=== PATIENT | female | born 1925 | race Caucasian/White ===

== ENCOUNTER 2016-05-31 13:25 | Inpatient (IN) ==
[2016-05-31] MEDS ORDERED: MAGNESIUM HYDROXIDE SUSP 30 ML UDCUP PO PRN (13:42)
[2016-05-31] MEDS ORDERED: ZALEPLON 5 MG CAPSULE PO PRN (13:42)
[2016-05-31] MEDS ORDERED: ONDANSETRON 4 MG/2 ML VIAL IV PRN (13:42)
[2016-05-31] MEDS ORDERED: ACETAMINOPHEN 325 MG TABLET PO PRN (13:42)
[2016-05-31 15:21] LABS: Basophils % 0.6 % (0.0-0.8); Eosinophils # 0.1 10*3/uL (0.0-0.87); Eosinophils % 1.5 % (0.00-10.9); Hematocrit 33.7 VOL% (35.7-47.0); Immature Granulocytes % 0.3 %; Immature Granulocytes Absolute 0.02 #; Lymphocytes % 14.5 % (21.3-54.2); Mean Corpuscular HGB Conc 32.6 GM/DL (32-36); Mean Corpuscular Hemoglobin 31 PG (27-34); Mean Corpuscular Volume 95.2 FL (87-102); Mean Platelet Volume 11.5 FL (9.6-12.0); Monocytes # 0.6 10*3/uL (0.11-0.8); Monocytes % 9.5 % (1.7-12.7); Neutrophils % 73.6 % (38.7-73.9); Platelet Count 205 T/CUMM (130-400); Red Blood Count 3.54 MC/CUMM (3.8-5.5); White Blood Count 6.8 T/CUMM (4-12)
[2016-05-31 15:31] LABS: INR 1.1; PT Patient Result 11.6 SECS; Partial Thromboplastin Time 24.6 SECS (0-40)
--- NOTE | 2016-05-31 15:53 | XRay Report ---
XR chest 1V portable Indication: Preop respiratory evaluation. Chest one view: Comparison 05/21/14. Normal heart size and mediastinal contour, and mildly tortuous thoracic aorta, scattered calcified granulomata, healed posterior right rib fractures, and generally clear lungs are stable. Pleural spaces remain clear. Impression: No acute cardio pulmonary disease. PROCEDURE INTERPRETED AT [facility] [place] DEPARTMENT OF RADIOLOGY Final Report Signed by: William Lyons M.D.
--- NOTE | 2016-05-31 15:56 | XRay Report ---
XR hip 2v w pelvis RT Indication: Recent fall. Occult right hip fracture on MRI. Pelvis one view, right hip 2 views: Dymu-ep-zcoz articulation of the right hip is present with reactive sclerosis, osteophyte development and remodeling of the articular surfaces. No hip fracture is identified in any of these obtained. The left hip joint space is maintained and no fracture or dislocation is seen on that side. Pelvic ring is intact without fracture or diastases. Sacral elements are maintained as well. Impression: Severe right hip osteoarthritis. No discrete fracture identified. PROCEDURE INTERPRETED AT [facility] DEPARTMENT OF RADIOLOGY Final Report Signed by: William Lyons M.D.
[2016-05-31 15:58] LABS: Albumin 3.7 G/DL (3.4-5.0); Bilirubin,Total 0.5 MG/DL (0.2-1.0); Osmolality,Calculated 298.6 MOS/KG (273-304); Potassium 4.4 MMOL/L (3.5-5.1); Total Protein 6.9 G/DL (6.4-8.3)
--- NOTE | 2016-05-31 18:01 | Event Note ---
Ms Kate has been admitted from clinic for a MRI positive intertrochanteric hip fracture after fall. She also has severe underlying hip osteoarthritis. She currently has no new complaints. Plan: I've advised a total hip arthroplasty given the combination of severe hip osteoarthritis and the fracture. All questions were answered.
[2016-05-31 18:09] LABS: Apearance,Urine CLOUDY (Clear); Bacteria,Urine Occasional /HPF (Few); Bilirubin,Urine Negative (Negative); Blood, Urine Small mg/dL (Negative); Glucose,Urine (UA) Negative (Negative); Hyaline Casts,Urine 1 /LPF (0-3); Ketones,Urine Negative (Negative); Mucus,Urine Occasional /LPF (Occasional); Nitrite,Urine Negative (Negative); Protein,Urine Negative; RBC,Urine 10 /HPF (0-4); Squamous Epithelial Cell,Urine Occasional /HPF (0-10); Urine Color Yellow (Yellow); Urine Urobilinogen < 2.0 EU/DL (0.2-1.0); WBC,Urine 3 /HPF (0-6)
[2016-06-01] MEDS ORDERED: VANCOMYCIN INJ 1,000 MG in SODIUM CHLORIDE 0.9% 250 ML IV ONE (06:00)
--- NOTE | 2016-06-01 07:55 | EKG Report ---
Stationary ECG Study [facility] Test Date: 06/01/2016 7:49:32 AM Pat Name: JOHNSON CASTRO Department: Room: 319 Gender: F Nursing Home Admissions Director: FACUNDO : 1925 Requested by: Randy Chandler Order Number: [id number] Reading MD: JOSH GRIMM Intervals [place] Rate: 69 P: 88 [place]: 144 QRS: 84 QRSD: 79 T: 80 QT: 414 QTc: 433 Interpretive Statements SINUS RHYTHM WITH PREMATURE VENTRICULAR COMPLEX Electronically Signed On 06-01-16 12:37:59 AQUARIUM SPECIALIST by JOSH GRIMM [email or web address]
--- NOTE | 2016-06-01 08:00 | Orthopedic Progress Note ---
Orthopedics - Subjective Interval history: Mrs Kate was seen this am. No new complaints. She has been up walking several times. Exam unchanged. Plan: Proceed with FLORIN today. I've discussed indications and rationale for the procedure. Also, discussed the importance of not ambulating on rle until after surgery. Exam - Constitutional Vitals: Period Temp Pulse Resp BP Sys/Chandler Pulse Ox Last 24 Hr 97.3 F-98.1 F 75-81 16-18 138-151/67-77 98-99 Results - Labs CBC & BMP: 05/31/16 15:02 05/31/16 15:02
[2016-06-01] MEDS: SULFAMETHOX/TRIMETHOPRIM 800-160 MG TABLET PO SCH ×2 (09:12→21:38)
[2016-06-01] MEDS: LACTATED RINGERS 1,000 ML IV SCH ×2 (10:00→16:02)
--- NOTE | 2016-06-01 11:48 | Pulmonology Consult Note ---
History of Present Illness Chief complaint: Surgical clearance, Medical management History of present illness: Josh Basilio, ANP-BC, GNP-BC, acting as scribe for Dr. Kevin Degroot Mrs. Kate is an 89 year old white female from [place], [place], who we've been asked to see for surgical clearance for a right total hip arthroplasty. We will also medically manage her while inpatient. The request for consultation was made by Dr. Elizabeth. Mrs. Kate has had multiple falls recently. She was seen at [facility] [place] on [place]/16 by Suzy Guevara NP, with complaints of right leg pain after a fall. Xrays showed no acute fracture. An MRI was scheduled and this showed an intertrochanteric fracture of the right hip. She was seen today along with her kotktdns-fr-gbv, Alecia Cardoza. Mrs. Cardoaz provides much of the ROS and history. She states the patient's breathing has been doing fine. She denies any cardiac angina or palpitations. There is no reported dysphagia or reflux. No change in bowel or bladder habits. No TIA symptoms or syncope. She state that her "leg gives way" and she falls. This has been ongoing by report. No bleeding from any site. All other systems were reviewed and were negative. Allergies: Codeine Home medications: See list Past medical history: Proximal spastic disease. High blood pressure. Mild degenerative joint disease. She was told in [place] years ago that she might have had a small heart attack. She says she never had any symptoms but the doctor saw it on the EKG. She's had a hysterectomy, and she had a fractured arm in about 1979 that as she was going through rehabilitation deteriorated and she required surgery on it. She had a basal cell carcinoma removed from the right elbow and upper eyelid by Dr. Wetzel in January 2014. March [address] Cehry with colonic perforation. Had abdominal surgery at [facility] by Dr. Ricks. History of rheumatoid arthritis which was previously followed by Dr. Berhane Maloney. Social history: The patient does not smoke or drink. She has a 12th grade education. She mainly worked as a housewife. She is a member of the "[employer] On 12/03/2014 she said she is no longer singing. She is . Her had cirrhosis of the liver. He was not a drinker. He was a retired marine. He was 17 years younger than the patient. She says she grew up in [place] then moved to [place], [place], [place]. She later lived in [place], [place]. She moved back to the [place] area several years ago. She says she has been followed by Dr. Gilson Valle and before that she was followed by Dr. Arreaga who took care of her until he . Family history: Patient's father at the age of 28 of an unknown cause. Chest x-ray. Done 05/31/2016. No acute cardio pulmonary process. X-ray of the right hip done 05/31/2016. Severe right hip osteoarthritis. No discrete fracture identified. Laboratory: White count is 6800 with 73.6% segs, 14.5% lymphs, and 9.5% monos; H &H 11.0/33.7 with normal indices and normal red blood cell distribution width; platelet count 205,000; INR 1.1; creatinine 1.40, BUN 39, sodium 146, potassium 4.4, liver function tests within normal limits, calcium 9.0, albumin 3.7, total protein 6.9; urinalysis showed small leukocytes with 3 WBCs per high-power field. Urine cultures pending. Home Medications Medication Instructions Recorded Confirmed Type Albuterol Sulfate [Ventolin HFA] 2 puff INH BID PRN 01/09/15 05/31/16 History Calcium Carbonate/Vitamin D3 1 each PO DAILY 01/09/15 05/31/16 History [Calcium 500 + Vit D 200 Tablet] Losartan/Hctz 50-12.5 [Hyzaar 1 tablet PO DAILY 01/09/15 05/31/16 History 50-12.5] Solifenacin [Vesicare] 5 mg PO DAILY 01/09/15 05/31/16 History Mirtazapine 15 mg PO BEDTIME 06/01/16 06/01/16 History Allergies Allergy/AdvReac Type Severity Reaction Status Date / Time codeine Allergy Verified 01/09/15 08:08 Exam (Pulmonay) H&P - Constitutional Vitals: Period Temp Pulse Resp BP Sys/Chandler Pulse Ox Last 24 Hr 97.3 F-98.1 F 74-81 16-18 131-151/67-77 98-99 Exam: Psych: Presently oriented x 3; a pleasant and cooperative patient HEENT: Pupils, irises, sclera, conjunctiva, and eyelids are normal. The face is symmetrical without rash or masses. Lips, tongue, buccal mucosa, soft and hard palates, and pharynx are WNL . Neck: Symmetrical. Thyroid was not palpated. Lymphatics: No submandibular, cervical, or supraclavicular adenopathy Chest: Symmetrical without wheeze, rhonchi or rales; no chest wall tenderness Breasts: Deferred CV: Regular with a lateral PMI; no murmur, rub, or dwyer was heard Arterial: Carotids with a fairly good upstroke, partially hidden behind the sternocleidomastoid muscles. There is no bruit. Upper extremity pulses are palpable. Lower extremity pulses are palpable. Venous: Exam of the neck, upper, and lower extremities is normal Abd: No appreciable organomegaly, masses, tenderness, or bruit; Bowel sounds are positive x 4; The aorta was not palpated /Rectal: Deferred Extremities: No clubbing, cyanosis, significant edema, or obvious DVT; as per Dr. Elizabeth Skin: No cancerous or infectious lesions of the exposed, examined skin; the perineal area was not examined M/S: Age appropriate loss of the normal curvature of the cervical, thoracic, and lumbar spine Neurological: Cranial nerves are intact with some mild decreased hearing acuity bilaterally, Long tract motor function is intact; Sensory exam was not done; gait was not tested. The remainder of the exam was noncontributory. Impression: #1: Acute right intertrochanteric hip fracture s/p fall #2: Severe underlying osteoarthritis of the right hip #3: Rheumatoid arthritis; previously followed by Dr. Berhane Maloney #4: Asthma; good control #5: Hypertension; good control #6: History of hysterectomy #7: Previous surgery for fractured arm in 1979 #8: See past history Plan: #1: Cleared for anesthesia and surgery #2: Continue her medications #3: We discussed the patient's multiple falls and gait abnormalities with her jslsqfxc-lu-wfr. We recommended [facility] on discharge. The family is agreeable. We put in a consult social studies department chair so they can begin working with [facility]. #4: See orders We appreciate this consult and will follow along with you. Medical,Surgical,& Family Hx - Medical History Cardio: History of: Hypertension, SC (2 small ones 10-12 years ago) Psychological: History of: Depression Neurology: No history of: Seizures Rheumatology: History of;: Rheumatoid Arthritis Respiratory: History of: Asthma Gastrointestinal: History of: GERD, GI Problems (constipation) Musculoskeletal: History of: Osteoporosis Comment Only: Musculoskeletal Problems (broken ribs-rt. side..2 weeks ago from a fall) - Surgical History Neurologic Surgeries: Patient denies: Neurologic Surgery HEENT Surgeries: Surgical HX of: Tonsilectomy & Adenoidectomy Abdominal Surgeries: Surgical HX of: Appendectomy (?), Colonoscopy, EGD Reproductive Surgeries: Surgical HX of;: Hysterectomy - Social History Smoking Status: Never smoker Frequency of Alcohol Use: None Type of Drug Use: None Results - Labs CBC & BMP: 05/31/16 15:02 05/31/16 15:02
[2016-06-01] MEDS ORDERED: ONDANSETRON 4 MG/2 ML VIAL ONE (12:12)
[2016-06-01] MEDS ORDERED: LIDOCAINE 2% 5 ML VIAL ONE (12:12)
[2016-06-01] MEDS ORDERED: PROPOFOL 200 MG/20 ML VIAL IV ONE (12:12)
[2016-06-01] MEDS ORDERED: TRANEXAMIC ACID 1,000 MG/10 ML VIAL IV ONE (12:50)
[2016-06-01] MEDS ORDERED: BACITRACIN OINT 0.9 GM PACK TOP ONE (13:22)
--- NOTE | 2016-06-01 14:17 | Anesthesia ---
Anesthesia Post OP - Post Ansesthetic Evaluation Patient seen in post op: Yes Resp: within normal limits CV: within normal limits Mental: within normal limits Temp: within normal limits Vuyh-Vb-Jkxpjcwrb: within normal limits Nausea and Vomiting: within normal limits Pain: within normal limits
[2016-06-01] MEDS ORDERED: MIDAZOLAM 2 MG/2 ML VIAL ONE (14:21)
[2016-06-01] MEDS ORDERED: fentaNYL 100 MCG/2 ML VIAL ONE (14:21)
[2016-06-01 14:23] LABS: Apearance,Urine CLEAR (Clear); Bilirubin,Urine Negative (Negative); Blood, Urine Negative (Negative); Glucose,Urine (UA) Negative (Negative); Ketones,Urine Negative (Negative); Mucus,Urine Occasional /LPF (Occasional); Nitrite,Urine Negative (Negative); Protein,Urine Negative; RBC,Urine 1 /HPF (0-4); Urine Color Yellow (Yellow); Urine Specific Gravity 1.018 (1.001-1.035); Urine Urobilinogen < 2.0 EU/DL (0.2-1.0); WBC,Urine <1 /HPF (0-6)
[2016-06-01] MEDS ORDERED: HYDROmorphone 2 MG/1 ML VIAL IV PRN (14:30)
[2016-06-01] MEDS ORDERED: ONDANSETRON 4 MG/2 ML VIAL IV PRN (14:30)
[2016-06-01] MEDS ORDERED: LACTATED RINGERS 1,000 ML IV SCH (14:30)
[2016-06-01] MEDS ORDERED: oxyCODONE IR 5 MG TABLET PO PRN ×2 (14:35)
[2016-06-01] MEDS ORDERED: MORPHINE 2 MG/1 ML SYRINGE IV PRN ×2 (14:35)
--- NOTE | 2016-06-01 14:49 | Operative Note ---
Date of procedure: 06/01/16 Procedure: DIAGNOSIS: Right intertrochanteric hip fracture. Right hip primary osteoarthrosis PROCEDURE: Right total hip arthroplasty (cpt #33885) SURGEON: Glenn COOK CHILL TECHNICIAN: [] ANESTHESIA: Spinal PROCEDURE and FINDINGS: After adequate anesthesia was induced, her operative hip was prepped and draped in usual sterile sterile fashion in the lateral decubitus position. Posterior lateral approach was made. Skin and subcutaneous tissue and deep fascia was incised. The gluteus maite muscle belly was split in line with its fibers. Piriformis, capsule and external rotators were taken down in a single layer for future repair. Templated femoral neck cut was made. The acetabulum was prepared by excising labrum and foveal contents and by sequentially reaming to 49 mm. A 50 mm Continuum shell was pressfit. 1 6.5mm screws and a dome hole plug was used. 32 mm elevated Longevity liner was placed. Femur was prepared with the box osteotome , canal finder and sequential broaches to size 13. Components were trialed. A size 13 VerSys Advocate stem was implanted with modern cementing techniques with Palacos cement. A distal centralizer and cement plug.were utilized. The femoral head was re-trialed and a 32+0 mm head was selected. Capsule and external rotators were repaired to themselves with #5 Tycron. To support the residual fracture involving the greater trochanter, a dzhnaq-th-ksiiq #5 Tycron suture was passed through the gluteus medius tendon and the vastus lateralis origin. Fascia was repaired with 0 Vicryl rwaxyv-qo-xjvdt sutures. Deep subcutaneous tissues were closed with 0 Vcryl. Deep subcutaneous tissue was closed with a running 2-0 Vicryl suture. Superficial subcutaneous tissue was approximated with interrupted, buried 3-0 Vicryl sutures. [place] were used to approximate skin. Bacitracin and a sterile dressing were applied. Surgeon / Physician: Randy Elizabeth Jr. Results - Labs CBC & BMP: 05/31/16 15:02 05/31/16 15:02 Discharge Plan - Discharge Medications No Action Solifenacin [Vesicare] 5 mg PO DAILY Albuterol Sulfate [Ventolin HFA] 2 puff INH BID PRN PRN Reason: ASTHMA Losartan/Hctz 50-12.5 [Hyzaar 50-12.5] 1 tablet PO DAILY Calcium Carbonate/Vitamin D3 [Calcium 500 + Vit D 200 Tablet] 1 each PO DAILY Mirtazapine 15 mg PO BEDTIME - Follow Up or Referral - Forms/Instructions
--- NOTE | 2016-06-01 15:05 | XRay Report ---
XR hip 1V RT Indication: Hip arthroplasty Comparison: 31 May 2016 Findings: Interval right hip arthroplasty has been performed. Arthroplasty alignment and positioning appear within normal limits for single AP image. No periprosthetic fracture is identified. Impression: Hip arthroplasty within normal limits postoperatively. PROCEDURE INTERPRETED AT [facility] DEPARTMENT OF RADIOLOGY Final Report Signed by: Dr. Jose Williamson
[2016-06-01] MEDS: KETOROLAC 15 MG/1 ML VIAL IV SCH ×2 (16:02→21:38)
[2016-06-01] MEDS: ACETAMINOPHEN 500 MG TABLET PO SCH (18:25)
[2016-06-01] MEDS: DOCUSATE SODIUM 100 MG CAPSULE PO SCH (21:38)
[2016-06-02] MEDS: ACETAMINOPHEN 500 MG TABLET PO SCH ×3 (01:48→12:48)
[2016-06-02] MEDS: LACTATED RINGERS 1,000 ML IV SCH (02:59)
[2016-06-02] MEDS: KETOROLAC 15 MG/1 ML VIAL IV SCH ×2 (03:00→10:27)
[2016-06-02 05:20] LABS: Basophils % 0.5 % (0.0-0.8); Eosinophils # 0.3 10*3/uL (0.0-0.87); Eosinophils % 4.3 % (0.00-10.9); Hematocrit 26.2 VOL% (35.7-47.0); Hemoglobin 8.9 GM/DL (12.0-16.0); Immature Granulocytes % 0.2 %; Immature Granulocytes Absolute 0.01 #; Lymphocytes # 0.7 10*3/uL (1.4-4.0); Lymphocytes % 12.6 % (21.3-54.2); Mean Corpuscular Hemoglobin 31 PG (27-34); Mean Corpuscular Volume 92.6 FL (87-102); Mean Platelet Volume 11.1 FL (9.6-12.0); Monocytes # 0.7 10*3/uL (0.11-0.8); Monocytes % 11.4 % (1.7-12.7); Neutrophils # 4.1 10*3/uL (1.4-7.4); Platelet Count 154 T/CUMM (130-400); Red Blood Count 2.83 MC/CUMM (3.8-5.5); White Blood Count 5.8 T/CUMM (4-12)
[2016-06-02 06:00] LABS: Calcium 7.9 MG/DL (8.5-10.1); Osmolality,Calculated 294.6 MOS/KG (273-304); Potassium 4.3 MMOL/L (3.5-5.1)
[2016-06-02] MEDS ORDERED: ALBUTEROL 2.5 MG/3 ML NEB RESP TX PRN (07:33)
--- NOTE | 2016-06-02 07:37 | Orthopedic Progress Note ---
Orthopedics - Subjective Interval history: Comfortable this morning. Pillow not between legs. Dressing dry. NV ok. Discussed the importance of pillow between legs while in bed. Mobilize with therapy. Exam - Constitutional Vitals: Period Temp Pulse Resp BP Sys/Chandler Pulse Ox Last 24 Hr 97.7 F-98.9 F 53-81 14-25 93-143/46-81 97-100 Results - Labs CBC & BMP: 06/02/16 05:09 06/02/16 05:09
[2016-06-02] MEDS: CALCIUM (CARBONATE)/VITAMIN D 500 MG-200 UNIT TABLET PO SCH (10:16)
[2016-06-02] MEDS: DOCUSATE SODIUM 100 MG CAPSULE PO SCH ×2 (10:16→20:32)
[2016-06-02] MEDS: SULFAMETHOX/TRIMETHOPRIM 800-160 MG TABLET PO SCH (10:16)
[2016-06-02] MEDS: FONDAPARINUX 2.5 MG/0.5 ML SYRINGE SUBCUT SCH (10:17)
[2016-06-02] MEDS: LOSARTAN/HCTZ 50-12.5 MG TABLET PO SCH (10:17)
[2016-06-02] MEDS: SOLIFENACIN 5 MG TABLET PO SCH (10:17)
[2016-06-02] MEDS ORDERED: KETOROLAC 30 MG/1 ML VIAL ONE (10:25)
--- NOTE | 2016-06-02 11:50 | Pathology Report from [facility] ---
ACCESSION # : [id number] PATIENT NAME : Johnson Castro ORDERING DR : GABINO YA MD CLINICAL HX: RT FX hip POST-OP DX: Same SPECIMEN INFO: RT femoral head & tissue GROSS DESCRIPTION: The specimen is received in formalin labeled with the patient 's name Johnson Castro consists of a femoral head that is 3.7 x 3.9 x up to 2.2 cm. The articular surfaces are degenerative with bony eburnation measuring up to 4 cm. The cut surfaces are hemorrhagic and smooth with mild softening appreciated. Land Appraiser tissue is submitted in one casssette following decalcification. DIAGNOSIS FOR JOHNSON CASTRO: Right femoral head with fracture and changes of degenerative joint disease/ osteoarthritis.Unremarkable hematopoietic marrow with no abnormal collections of blasts, plasma cells, tumor cells or lymphocytes. SERVICE DATE: 06/02/2016 REPORT DATE: 06/02/2016 PATHOLOGIST: Deng Minor M.D. [facility]
--- NOTE | 2016-06-02 11:56 | Pulmonology Progress Note ---
Pulmonary - PN: Subj Interval history: Josh Basilio, ANP-BC, GNP-BC, acting as scribe for Dr. Kevin Degroot Mrs. Kate was seen today along with Suzy Valentine, PT. Mrs. Kate was admitted by Dr. Elizabeth on 05/31/16 after a positive MRI for an acute intertrochanteric fracture of the right hip. She underwent a right total hip arthroplasty 06/01/[address] Elizabeth. She has done well post-op. She is working with physical therapy. Yesterday we consulted marriage and family social worker for placement at [facility] on discharge. The patient has had multiple falls at home recently ("every day" per her qjjiedsl-dy-ivd), so she definitely needs more therapy and gait training. Urine culture has grown E. coli. She has chronic azotemia. For these reasons, on review of the sensitivities provided we will change the Bactrim DS to Cipro which has an GABRIELA of <1. Medications have been reviewed. Labs have been reviewed. White count is 5,800 with 71.0% segs; H&H 8.9/26.2 with normal indices and normal RDW; PLT count 154,000; creatinine 1.30, BUN 27, NA+ 146, K+ 4.3; Ca+ 7.9 Exam (Progress Note) - Constitutional Vitals: Period Temp Pulse Resp BP Sys/Chandler Pulse Ox Last 24 Hr 97.5 F-98.9 F 53-81 14-25 93-147/46-81 94-100 Exam: Chest is wheeze free Herat no gallop Abd is nontender and nondistended; BS positive x [address] Elizabeth; nothing to suggest acute DVT Psych presently oriented x 3 Neuro long tract motor function is intact Plan: Cipro as above. Repeat CBC in the morning. See orders. Results - Labs CBC & BMP: 06/02/16 05:09 06/02/16 05:09
[2016-06-02] MEDS: CIPROFLOXACIN 250 MG TABLET PO SCH ×2 (12:48→20:32)
[2016-06-02] MEDS ORDERED: MIRTAZAPINE 15 MG TABLET PO SCH (21:00)
[2016-06-03 06:16] LABS: Basophils % 0.3 % (0.0-0.8); Eosinophils # 0.3 10*3/uL (0.0-0.87); Eosinophils % 4.3 % (0.00-10.9); Hematocrit 26.7 VOL% (35.7-47.0); Hemoglobin 8.8 GM/DL (12.0-16.0); Immature Granulocytes % 0.4 %; Immature Granulocytes Absolute 0.03 #; Lymphocytes # 0.6 10*3/uL (1.4-4.0); Lymphocytes % 8.3 % (21.3-54.2); Mean Corpuscular Hemoglobin 31 PG (27-34); Mean Platelet Volume 12.3 FL (9.6-12.0); Monocytes # 0.9 10*3/uL (0.11-0.8); Neutrophils # 5.4 10*3/uL (1.4-7.4); Neutrophils % 74.7 % (38.7-73.9); Platelet Count 157 T/CUMM (130-400); Red Blood Count 2.84 MC/CUMM (3.8-5.5); Red Cell Distribution Width 11.9 % (9.3-17.3); White Blood Count 7.2 T/CUMM (4-12)
--- NOTE | 2016-06-03 07:45 | Orthopedic Progress Note ---
Orthopedics - Subjective Interval history: Ms Kate is comfortable this morning. Slight serosanguineous drainage from the proximal aspect of her wound. Right lower extremity is neurovascularly unchanged. Plan: Continue with physical therapy. Discharge planning. Plan discharge to [facility] when bed available. Exam - Constitutional Vitals: Period Temp Pulse Resp BP Sys/Chandler Pulse Ox Last 24 Hr 97.5 F-98.6 F 70-86 14-18 106-147/59-74 94-98 Results - Labs CBC & BMP: 06/03/16 04:43 06/02/16 05:09 Specialty Discharge - Follow Up or Referrals Follow up with: Randy Elizabeth Jr., MD [Physician] -
--- NOTE | 2016-06-03 07:48 | Discharge Summary ---
Hospital Course - Hospital Course Hospital Course: Ms Kate was admitted with a MRI-positive right intertrochanteric hip fracture with severe underlying hip osteoarthritis. She was admitted for pain control and workup. She underwent a uncomplicated right total hip arthroplasty. She received perioperative DVT and antimicrobial prophylaxis. Dr. Degroot was consulted to manage her medical problems perioperatively. Ms Kate had a preoperative Escherichia coli UTI. She was initially started on Bactrim. She was then switched to Cipro. Specialty Discharge - Follow Up or Referrals Follow up with: Randy Elizabeth Jr., MD [Physician] - Discharge Plan - Discharge Data Disposition: Disch/Xfer to Snf Condition at Discharge: Stable Discharge Diet: advance to your usual diet Activity: ambulate only with your walker Hygiene: may shower Weight Bearing at Discharge: weight bear as tolerated Driving: not until seen by doctor - Discharge Medications New Docusate Sodium Cap [Colace Cap] 100 mg PO BID capsule Ciprofloxacin Tab [Cipro Tab] 250 mg PO Q12HR 4 Days Fondaparinux [Arixtra] 2.5 mg SUBCUT Q24H syringe oxyCODONE IR [Roxicodone] 10 mg PO Q4H PRN #0 tablet PRN Reason: Pain Moderate (4-7) oxyCODONE IR [Roxicodone] 5 mg PO Q4H PRN #0 tablet PRN Reason: Pain Mild (1-3) Continue Solifenacin [Vesicare] 5 mg PO DAILY Albuterol Sulfate [Ventolin HFA] 2 puff INH BID PRN PRN Reason: ASTHMA Losartan/Hctz 50-12.5 [Hyzaar 50-12.5] 1 tablet PO DAILY Calcium Carbonate/Vitamin D3 [Calcium 500-Vit D3 200 Tablet] 1 each PO DAILY Mirtazapine 15 mg PO BEDTIME - Follow Up or Referral Follow Up: Randy Elizabeth Jr., MD [Physician] - - Forms/Instructions Additional Discharge Instructions: Posterior hip precautions for 3 months. Daily dry dressing changes. Arrange for walker and bedside commode for home use. Wear BETHANY hose for 1 month. Follow-up appointment in 4 weeks. Discontinue zeyad and Steri-Strip wound on 06/13/2016. Prescription for oxycodone IR 5 mg with 20 tablets was written. Stop Arixtra when discharged from [facility]. Exam - Constitutional Vitals: Period Temp Pulse Resp BP Sys/Chandler Pulse Ox Last 24 Hr 97.9 F-98.6 F 70-86 15-18 106-126/59-74 96-98 Discharge Results Procedures and tests throughout hospitalization: Pending Orders 06/04/16 04:00 Comp Blood Count Auto Diff IN AM Labs on day of discharge: Labs from last 24 hours 06/03/16 04:43 WBC 7.2 RBC 2.84 L Hgb 8.8 L Hct 26.7 L MCV 94.0 MCH 31 MCHC 33.0 RDW 11.9 Plt Count 157 MPV 12.3 H Neut % (Auto) 74.7 H Lymph % (Auto) 8.3 L [place] % (Auto) 12.0 Eos % (Auto) 4.3 Baso % (Auto) 0.3 Neut # (Auto) 5.4 Lymph # (Auto) 0.6 L [place] # (Auto) 0.9 H Eos # (Auto) 0.3 Baso # (Auto) 0.0 Immature Gran % 0.4 Nucleated RBC % 0.0 Immature Gran # 0.03 Nucleated RBCs # 0.00 DS: Provider Date of admission: 05/31/16 13:42 Primary care physician: Kevin Degroot MD Attending physician on admission: Randy Elizabeth Jr., Consults: 05/31/16 13:42 Consult to Anesthesiology [CONS] Routine Consulting Provider: Reason for Anesthesiology: Pre-op Clearance 05/31/16 13:48 Consult to Physician [CONS] Routine Comment: preop medical land management supervisor Provider: Kevin Degroot When should Consulting Provider be notified: Now Person Notified: ROBBY Date Notified: 05/31/16 Time Notified: 15:00 05/31/16 17:07 Consult to Dietitian [CONS] Routine Reason for Dietitian: Dietary Consult 06/01/16 11:02 Consult to Case Mgmt/Social Srvs [CONS] Routine Reason for Case Mgmt/Social Srvs: Rehab Consult Comment: Will need TMR at discharge 06/01/16 14:35 Consult to Occupational Therapy [CONS] Routine Reason for Occupational Therapy: Evaluate and Treat Consult Comment: ADL's Consult to Physical Therapy [CONS] Routine Reason for Physical Therapy: Evaluate and Treat Gait Training Start Therapy: Tomorrow Consult Comment: wbat, hip precautions 06/01/16 14:42 Consult to Pharmacy [CONS] Routine Reason for Pharmacy Consult: Adjust Meds Renal Funct 06/02/16 17:37 Consult to Dietitian [CONS] Routine Reason for Dietitian: Diet Instruction Consult Comment: family is concerned about patient's intake Discharging clinician: Randy Elizabeth Jr.,
[2016-06-03] MEDS: CALCIUM (CARBONATE)/VITAMIN D 500 MG-200 UNIT TABLET PO SCH (09:52)
[2016-06-03] MEDS: SOLIFENACIN 5 MG TABLET PO SCH (09:52)
[2016-06-03] MEDS: DOCUSATE SODIUM 100 MG CAPSULE PO SCH (09:52)
[2016-06-03] MEDS: LOSARTAN/HCTZ 50-12.5 MG TABLET PO SCH (09:53)
[2016-06-03] MEDS: CIPROFLOXACIN 250 MG TABLET PO SCH (09:53)
[2016-06-03] MEDS: FONDAPARINUX 2.5 MG/0.5 ML SYRINGE SUBCUT SCH (09:53)
--- NOTE | 2016-06-03 11:25 | Pulmonology Progress Note ---
Pulmonary - PN: Subj Interval history: Josh Basilio, ANP-BC, GNP-BC, acting as scribe for Dr. Kevin Degroot Mrs. Kate was seen today along with the [facility] driver retraining instructor and several [facility] nursing students. Mrs. Kate was admitted by Dr. Elizabeth on 05/31/16 after a positive MRI for an acute intertrochanteric fracture of the right hip. She underwent a right total hip arthroplasty 06/01/[address] Elizabeth. She has done well post-op. She is working with physical therapy. Early on we consulted school social worker for placement at [facility] on discharge. The patient has had multiple falls at home recently ("every day" per her fjonzfml-rn-xpp), so she definitely needs more therapy and gait training. She has been accepted and will be transferred there later on today. Urine culture has grown E. coli. She has chronic azotemia. For these reasons, on review of the sensitivities provided we changed the Bactrim DS to Cipro which has an GABRIELA of <1. She will need 5 days of this. Medications have been reviewed. We made no changes today. Labs have been reviewed. White count is 7,200 with 74.7% segs; H&H 8.8/26.7 with normal indices and normal RDW; PLT count 157,000 Exam (Progress Note) - Constitutional Vitals: Period Temp Pulse Resp BP Sys/Chandler Pulse Ox Last 24 Hr 97.9 F-98.6 F 70-86 15-18 106-126/59-74 96-98 Exam: Chest is wheeze free Herat no gallop Abd is nontender and nondistended; BS positive x [address] Elizabeth; nothing to suggest acute DVT Psych presently oriented x 3 Neuro long tract motor function is intact Plan: Cipro as above. She has been accepted in transfer to [facility]. We will sign off. Please reconsult PRN. If needed, we will follow her in medical management while at [facility]. Results - Labs CBC & BMP: 06/03/16 04:43 06/02/16 05:09 Specialty Discharge - Follow Up or Referrals Follow up with: Randy Elizabeth Jr., MD [Physician] - 06/30/16 10:00 am
[2016-06-03 13:39] VITALS: BP 129/53
== END 2016-06-03 11:50 | DRG 470 ==
LOC: N.3E 13:42
PROVIDERS: ADMIT Orthopaedic Surgery; ATTEND Orthopaedic Surgery